=== PATIENT | female | born 1980 | race African-American/Black ===

== ENCOUNTER 2018-03-31 22:01 | Emergency (ER) | payer SELFPAY ==
[~2018-03-31] VITALS: Ht 172.7 cm; Wt 91.0 kg
[2018-03-31] MEDS ORDERED: BACITRACIN ZINC 15GM TUBE TOP ONE (23:00)
[2018-03-31] MEDS ORDERED: KETOROLAC 60MG/2ML VIAL IM ONE (23:00)
[2018-03-31 23:51] VITALS: BP 119/80
== END 2018-03-31 23:52 | disposition home or self-care (01) ==
LOC: ER 22:34
DX: T22.112A Burn of first degree of left forearm, initial encounter (principal); T20.07XA Burn of unspecified degree of neck, initial encounter; T22.052A Burn of unspecified degree of left shoulder, initial encounter; T31.0 Burns involving less than 10% of body surface; J45.909 Unspecified asthma, uncomplicated; E87.71 Transfusion associated circulatory overload; Y93.G3 Activity, cooking and baking
CPT/HCPCS: 16020; 96372; 99284; J1885